=== PATIENT | female | born 1950 | race Asian ===

== ENCOUNTER 2019-04-29 19:35 | Emergency (ER) | payer OTHER ==
[~2019-04-29] VITALS: Ht 157.5 cm; Wt 62.6 kg
[2019-04-29 20:17] LABS: PLATELET COUNT 417 K/uL (152-353)
[2019-04-29 20:23] LABS: POTASSIUM 3.5 mmol/L (3.6-5.2)
[2019-04-30 03:49] VITALS: BP 186/74; TEMP 0
== END 2019-04-30 03:50 | disposition short-term general hospital (02) ==
LOC: ED 19:35
PROVIDERS: Emergency Medicine
DX: K56.609 Unspecified intestinal obstruction, unspecified as to partial versus complete obstruction (principal)
CPT/HCPCS: 80053; 81000; 82150; 83690; 85027; 96374; 96375; 99284; J1885; J2405; Q9963

== ENCOUNTER 2019-04-30 03:42 | Outpatient (CLI) | payer OTHER | END 2019-04-30 04:59 | disposition short-term general hospital (02) | LOC: AMB 03:42 | DX: R10.84 Generalized abdominal pain (principal); K56.699 Other intestinal obstruction unspecified as to partial versus complete obstruction; K76.9 Liver disease, unspecified | CPT/HCPCS: A0425; A0427 ==

== ENCOUNTER 2020-07-08 20:19 | Emergency (ER) | payer OTHER ==
[~2020-07-08] VITALS: Ht 157.5 cm; Wt 58.1 kg
[2020-07-08 21:28] LABS: PLATELET COUNT 193 K/uL (152-353)
[2020-07-08 21:33] LABS: POTASSIUM 3.4 mmol/L (3.6-5.2); SODIUM 138 mmol/L (136-145)
[2020-07-08 21:42] LABS: PARTIAL THROMBOPLASTIN TIME 24.5 SECONDS (24.5-33.6)
[2020-07-08 22:35] VITALS: BP 162/78; TEMP 98.5
== END 2020-07-08 22:35 | disposition home or self-care (01) ==
LOC: ED 20:19
PROVIDERS: Hospitalist
DX: I16.0 Hypertensive urgency (principal); E87.6 Hypokalemia
CPT/HCPCS: 36415; 80053; 82550; 82553; 83880; 84484; 85027; 85610; 85730; 93005; 99283